=== PATIENT | female | born 1985 | race Caucasian/White ===

== ENCOUNTER 2023-09-04 19:17 | Emergency (ER) | payer MEDICAID ==
[~2023-09-04] VITALS: Ht 160 cm; Wt 103.0 kg
[2023-09-04 19:20] VITALS: TEMP 97.6; O2SAT 100
[2023-09-04] MEDS ORDERED: LIDOCAINE HCL/PF 1% 10 MG/ML 5ML VIAL INFIL ONE (20:00)
[2023-09-04] MEDS ORDERED: MORPHINE SULFATE 4 MG/ML CPJ (NOT FOR IM USE) IV ONE (20:00)
[2023-09-04] MEDS ORDERED: CEFAZOLIN 1000MG PREMIX 50 ML IV ONE (20:00)
[2023-09-04] MEDS ORDERED: TETANUS, DIPHTHERIA, PERTUSSIS VAC/PF 0.5ML (>10YR OLD) IM ONE ×2 (20:00→21:45)
[2023-09-04] MEDS ORDERED: BACITRACIN ZINC OINT UDPKT TOP ONE (20:00)
[2023-09-04 23:15] VITALS: BP 147/66; PULSE 79; RESP 16
[2023-09-05 00:02] LABS: HCG SCREEN NEGATIVE
[2023-09-05] MEDS ORDERED: IBUP-2030 MT (00:08)
[2023-09-05] MEDS ORDERED: BO1 TP (00:08)
== END 2023-09-05 01:33 | disposition home or self-care (01) ==
LOC: ER 19:17
DX: S81.011A Laceration without foreign body, right knee, initial encounter (principal); S93.402A Sprain of unspecified ligament of left ankle, initial encounter; W18.39XA Other fall on same level, initial encounter; Y93.89 Activity, other specified; Y92.89 Other specified places as the place of occurrence of the external cause; Y99.8 Other external cause status
CPT/HCPCS: 84703; 72170; 73560; 73610; 73700; 90715; 12002; 90471; 96365; 96375; 99285; J0690; J3490; J2270; Z7610 ×4